=== PATIENT | female | born 1955 | race Caucasian/White ===

== ENCOUNTER 2017-04-17 08:00 | Outpatient (CLI) | payer OTHER ==
[2017-04-17 13:41] LABS: BASOPHILS # (AUTO) 0.1 10^3/uL (0.0-0.1); BASOPHILS % (AUTO) 1.3 %; EOSINOPHILS # (AUTO) 0.1 10^3/uL (0.0-0.7); EOSINOPHILS % (AUTO) 1.5 %; HGB - HEMOGLOBIN 14.5 g/dL (12.0-16.0); LYMPHOCYTES # (AUTO) 1.7 10^3/uL (1.5-3.5); LYMPHOCYTES % (AUTO) 26.6 %; MEAN CORPUSCULAR HEMOGLOBIN 29.9 pg (27.0-31.0); MEAN CORPUSCULAR HGB CONC 34.7 g/dL (32.0-36.0); MEAN CORPUSCULAR VOLUME 86.2 fL (81.0-99.0); MEAN PLATELET VOLUME 8.4 fL (7.9-10.8); MONOCYTES # (AUTO) 0.7 10^3/uL (0.0-1.0); MONOCYTES % (AUTO) 10.8 %; NEUTROPHILS # (AUTO) 3.8 10^3/uL (1.5-6.6); NEUTROPHILS % (AUTO) 59.8 %; PLT - PLATELET COUNT 214 10^3/uL (130-450); RED BLOOD COUNT 4.84 10^6/uL (4.20-5.40); RED CELL DISTRIBUTION WIDTH 12.7 % (12.0-15.0); WHITE BLOOD COUNT 6.3 x10^3/uL (4.8-10.8)
[2017-04-17 13:55] LABS: ALBUMIN 4.2 g/dL (3.2-5.5); ALBUMIN/GLOBULIN RATIO 1.2 (1.0-2.2); ALKALINE PHOSPHATASE 55 IU/L (42-121); ALT ALANINE AMINOTRANSFERASE 25 IU/L (10-60); AST ASPARTATE AMINOTRANSFERASE 19 IU/L (10-42); BILIRUBIN,TOTAL 0.6 mg/dL (0.2-1.0); BUN - BLOOD UREA NITROGEN 18 mg/dL (6-20); CALCIUM 9.1 mg/dL (8.5-10.3); CARBON DIOXIDE - CO2 25 mmol/L (21-32); CHLORIDE 104 mmol/L (101-111); CHOL/HDL RATIO 6.8 (<4.4); CHOLESTEROL 267 mg/dL; CREATININE 0.8 mg/dL (0.4-1.0); GFR - MDRD 73 (>89); GLUCOSE 104 mg/dL (70-100); HDL CHOLESTEROL 39 mg/dL; LDL CHOLESTEROL,CALCULATED 203 mg/dL; LDL/HDL RATIO 5.2 (<4.4); SODIUM 136 mmol/L (135-145); TOTAL PROTEIN 7.7 g/dL (6.7-8.2); VLDL CHOLESTEROL 25 mg/dL
== END 2017-04-17 08:01 ==
LOC: LAB.WCP 08:00
PROVIDERS: ATTEND Family Medicine
DX: Z00.00 Encounter for general adult medical examination without abnormal findings (principal); E78.9 Disorder of lipoprotein metabolism, unspecified
CPT/HCPCS: 36415; 80053; 80061; 83721; 85025

== ENCOUNTER 2018-10-09 07:20 | Day surgery (SDC) | payer OTHER ==
[2018-10-09] MEDS ORDERED: LACTATED RINGERS 1,000 ML IV ONE (07:29)
[2018-10-09] MEDS ORDERED: MIDAZOLAM 2 MG/2 ML VIAL IVP ONE (08:45)
[2018-10-09] MEDS ORDERED: fentaNYL 250 MCG/5 ML VIAL IVP ONE (08:45)
[2018-10-09 10:15] VITALS: BP 108/70
[2018-10-09] MEDS ORDERED: ONDANSETRON ODT 4 MG TABLET ONE (10:30)
== END 2018-10-09 07:21 | disposition home or self-care (01) ==
LOC: SDS 07:20
PROVIDERS: ATTEND Internal Medicine
PROC: 0DJD8ZZ Inspection of Lower Intestinal Tract, Via Natural or Artificial Opening Endoscopic (ICD-10-PCS; principal; 2018-10-09 08:30)
DX: Z12.11 Encounter for screening for malignant neoplasm of colon (principal); K57.30 Diverticulosis of large intestine without perforation or abscess without bleeding
CPT/HCPCS: 45378; J3010; J7120; Q0162

== ENCOUNTER 2018-11-19 08:00 | Outpatient (CLI) | payer OTHER ==
[2018-11-19 19:03] LABS: BASOPHILS # (AUTO) 0.1 10^3/uL (0.0-0.1); BASOPHILS % (AUTO) 0.8 %; EOSINOPHILS # (AUTO) 0.2 10^3/uL (0.0-0.7); EOSINOPHILS % (AUTO) 2.2 %; HGB - HEMOGLOBIN 13.5 g/dL (12.0-16.0); LYMPHOCYTES % (AUTO) 27.5 %; MEAN CORPUSCULAR HEMOGLOBIN 28.8 pg (27.0-31.0); MEAN CORPUSCULAR HGB CONC 32.3 g/dL (32.0-36.0); MEAN CORPUSCULAR VOLUME 89.3 fL (81.0-99.0); MEAN PLATELET VOLUME 9.6 fL (7.9-10.8); MONOCYTES # (AUTO) 0.9 10^3/uL (0.0-1.0); MONOCYTES % (AUTO) 12.2 %; NEUTROPHILS # (AUTO) 4.1 10^3/uL (1.5-6.6); NEUTROPHILS % (AUTO) 56.9 %; PLT - PLATELET COUNT 241 10^3/uL (130-450); RED BLOOD COUNT 4.68 10^6/uL (4.20-5.40); RED CELL DISTRIBUTION WIDTH 12.6 % (12.0-15.0); WHITE BLOOD COUNT 7.2 x10^3/uL (4.8-10.8)
[2018-11-19 19:04] LABS: ALBUMIN/GLOBULIN RATIO 1.2 (1.0-2.2); BILIRUBIN,TOTAL 0.8 mg/dL (0.2-1.0); CALCIUM 9.1 mg/dL (8.5-10.3); CREATININE 0.7 mg/dL (0.4-1.0); TOTAL PROTEIN 7.4 g/dL (6.7-8.2)
== END 2018-11-19 08:01 | disposition home or self-care (01) ==
LOC: LAB.WCP 08:00
PROVIDERS: ATTEND Family Medicine
DX: R10.9 Unspecified abdominal pain (principal)
CPT/HCPCS: 36415; 80053; 82150; 83690; 85025

== ENCOUNTER 2018-11-19 17:48 | Outpatient (CLI) | payer OTHER ==
[2018-11-19] MEDS ORDERED: IOVERSOL 320 50 ML VIAL ONE (18:04)
[2018-11-19] MEDS ORDERED: IOVERSOL 320 100 ML VIAL IVP ONE ×3 (18:04→19:36)
[2018-11-19] MEDS ORDERED: IOVERSOL 320 50 ML VIAL PO ONE (19:36)
--- NOTE | 2018-11-19 20:57 | CT Report ---
Reason: ABDOMINAL PAIN Procedure Date: 11/19/2018 Accession Number: [id number] / [id number] Procedure: CT - Abdomen/Pelvis W CPT Code: FULL RESULT: EXAM: CT ABDOMEN AND PELVIS EXAM DATE: 11/19/2018 07:26 PM. CLINICAL HISTORY: ABDOMINAL PAIN. COMPARISONS: None. TECHNIQUE: Routine helical CT imaging was performed through the abdomen and pelvis. IV contrast: OPTI 320 100ML. Enteric contrast: Yes. Reconstructions: Coronal and sagittal. In accordance with CT protocol optimization, one or more of the following dose reduction techniques were utilized for this exam: automated exposure control, adjustment of mA and/or KV based on patient size, or use of iterative reconstructive technique. FINDINGS: Lung Bases: Unremarkable. Liver: Fatty liver, with sparing adjacent to the gallbladder. Gallbladder/Bile Ducts: The extra hepatic bile duct is mildly dilated up to 10 mm. No obvious intrahepatic bile duct dilatation. Some high density stones are present in the gallbladder fundus. The gallbladder is otherwise normal. Abrupt termination of the common bile duct of the head of the pancreas without normal tapering, worrisome for a stone. Attenuation is near that of stones in the gallbladder. Spleen: Normal. Pancreas: Normal. Adrenal Glands: Normal. Kidneys: Normal. No masses or hydronephrosis. Peritoneal Cavity/Bowel: A moderate size duodenal diverticulum is present near the ampulla measuring up to 2.5 cm in size. Some scattered diverticulosis, no CT evidence of diverticulitis. No free air or free fluid. Oral contrast has reached the sigmoid colon. The appendix is well visualized and normal. Pelvic Organs: Patient is status post hysterectomy. Urinary bladder is unremarkable. Streak artifact from right hip arthroplasty limits fine detail. Vasculature: No aneurysms or other significant abnormality. Bones: Total right hip arthroplasty. There is moderate left hip degenerative changes, with joint space loss superiorly. Other: None. IMPRESSION: 1. Cholelithiasis and concern for choledocholithiasis. The common bile duct is dilated up to 1 cm. There may be a stone in the distal common bile duct given truncation of the bile column. Correlate with liver function tests and location of pain. A periampullary duodenal diverticulum is present. 2. Fatty liver. 3. Diverticulosis without CT evidence of diverticulitis. RADIA The call report notification system was initiated by Dr. Irving Fuentes at 08:50 PM on 11/19/2018. ADDENDUM: 11/19/18 21:13 The above call report findings were discussed with Dr. Jiménez by Dr. Irving Fuentes at 09:13 PM on 11/19/2018.
== END 2018-11-19 17:49 | disposition home or self-care (01) ==
LOC: DI 17:48
PROVIDERS: ATTEND Family Medicine
DX: R10.9 Unspecified abdominal pain (principal); K80.20 Calculus of gallbladder without cholecystitis without obstruction; K76.0 Fatty (change of) liver, not elsewhere classified; K57.90 Diverticulosis of intestine, part unspecified, without perforation or abscess without bleeding
CPT/HCPCS: 36415; 74177; 80053; 82150; 83690; 85025; Q9967

== ENCOUNTER 2018-11-25 00:52 | Day surgery (SDC) | payer OTHER ==
[2018-11-25 01:07] LABS: BASOPHILS # (AUTO) 0.1 10^3/uL (0.0-0.1); BASOPHILS % (AUTO) 0.8 %; EOSINOPHILS # (AUTO) 0.2 10^3/uL (0.0-0.7); EOSINOPHILS % (AUTO) 2.1 %; HGB - HEMOGLOBIN 14.5 g/dL (12.0-16.0); LYMPHOCYTES # (AUTO) 1.9 10^3/uL (1.5-3.5); LYMPHOCYTES % (AUTO) 20.2 %; MEAN CORPUSCULAR HEMOGLOBIN 29.4 pg (27.0-31.0); MEAN CORPUSCULAR HGB CONC 33.3 g/dL (32.0-36.0); MEAN CORPUSCULAR VOLUME 88.2 fL (81.0-99.0); MEAN PLATELET VOLUME 9.1 fL (7.9-10.8); MONOCYTES # (AUTO) 1.1 10^3/uL (0.0-1.0); MONOCYTES % (AUTO) 11.2 %; NEUTROPHILS # (AUTO) 6.1 10^3/uL (1.5-6.6); NEUTROPHILS % (AUTO) 65.2 %; PLT - PLATELET COUNT 304 10^3/uL (130-450); RED BLOOD COUNT 4.93 10^6/uL (4.20-5.40); RED CELL DISTRIBUTION WIDTH 11.8 % (12.0-15.0); WHITE BLOOD COUNT 9.4 x10^3/uL (4.8-10.8)
[2018-11-25 01:20] LABS: ALBUMIN 4.2 g/dL (3.2-5.5); CALCIUM 9.7 mg/dL (8.5-10.3); CREATININE 1.2 mg/dL (0.4-1.0); TOTAL PROTEIN 8.5 g/dL (6.7-8.2)
--- NOTE | 2018-11-25 01:34 | ED Physician Documentation ---
PD HPI ABD PAIN - Stated complaint Stated Complaint: ABD PX - Chief complaint Chief Complaint: Abd Pain - History obtained from History obtained from: Patient - History of Present Illness Timing - onset: Enter time (23:00) Timing - details: Abrupt onset, Constant, Waxing and waning Pain level now: 8 Quality: Pain Location: RUQ Radiation: Lower back, Right flank Improved by: Other (nothing) Worsened by: Other (no exacerbating factors) Associated symptoms: No: Fever, Nausea, Vomiting, Diarrhea, Constipation Similar symptoms before: Diagnosis (biliary colic) Recently seen: Surgery - Additional information Additional information: patient has been having episodic RUQ pain for approximately 7-10 days. w/u revealed multiple gallstones and she had ERCP 11/21 at [facility], some sludge and gallstones were removed but they were unable to clear all the gallstones; stent was placed and plan was to f/u in 4-6 weeks for stent removal. Per patient, she was told she would eventually need to have the gallbladder removed. She presents at this time due to severe pain since 11 PM which woke her from sleep Review of Systems Constitutional: denies: Fever, Chills, Sweats Eyes: reports: Reviewed and negative Ears: reports: Reviewed and negative Nose: reports: Reviewed and negative Cardiac: reports: Reviewed and negative Respiratory: reports: Reviewed and negative GI: reports: Abdominal Pain. denies: Nausea, Vomiting, Constipation, Diarrhea : denies: Dysuria, Frequency Skin: reports: Reviewed and negative Musculoskeletal: reports: Back pain (RUQ pain radiates to the right flank and back (not back pain per se)) Neurologic: reports: Reviewed and negative PD PAST MEDICAL HISTORY - Past Medical History Cardiovascular: High cholesterol Respiratory: Shortness of breath Endocrine/Autoimmune: None GI: GERD, Hiatal hernia : Incontinence HEENT: Chronic sinusitis Psych: None Musculoskeletal: Osteoarthritis Derm: Herpes zoster - Past Surgical History General: Colonoscopy Ortho: Hip replacement /[employer]: Hysterectomy Derm: Skin cancer surgery - Present Medications Home Medications: Ambulatory Orders Medication Instructions Recorded Confirmed Omeprazole [Prilosec] 20 mg PO DAILY 09/04/14 10/09/18 Simvastatin 20 mg PO QPM 09/04/14 10/09/18 Albuterol 2.5 mg INH Q4H PRN 10/09/18 10/09/18 Docusate Sodium 250Mg Capsule 250 mg PO DAILY #10 capsule 11/25/18 [Colace 250Mg Capsule] oxyCODONE [Roxicodone] 5 mg PO Q4-6H #20 tablet 11/25/18 - Allergies Allergies/Adverse Reactions: Allergies Allergy/AdvReac Type Severity Reaction Status Date / Time hydrocodone bitartrate * AdvReac Intermediate Hallucinati Verified 09/04/14 08:29 [From Vicodin] ons - Living Situation Living Situation: reports: With spouse/s.o. Living Arrangement: reports: At home - Social History Does the pt drink ETOH?: No PD ED PE NORMAL - Vitals Vital signs reviewed: Yes - General General: Alert and oriented X 3, Well developed/nourished, Other (obvious severe painful distress) - HEENT HEENT: Moist mucous membranes - Neck Neck: Supple, no meningeal sign - Cardiac Cardiac: RRR, No murmur - Respiratory Respiratory: No respiratory distress, Clear bilaterally - Abdomen Abdomen: Soft, Non distended, Other (mild epigastric tenderness without rebound or guarding) - Back Back: No CVA TTP - Derm Derm: Normal color, Warm and dry - Extremities Extremities: No edema Results - Vitals Vitals: Vital Signs - 24 hr 11/25/18 11/25/18 11/25/18 11:51 13:10 13:15 Temperature 36.9 C 37.3 C Heart Rate 64 61 61 Respiratory 18 10 L 10 L Rate Blood Pressure 142/74 H 102/61 90/55 L O2 Saturation 96 100 100 11/25/18 11/25/18 11/25/18 13:20 13:25 13:30 Temperature 37.5 C 37.5 C Heart Rate 71 60 60 Respiratory 15 15 15 Rate Blood Pressure 86/54 L 92/55 L 89/57 L O2 Saturation 100 100 100 11/25/18 11/25/18 11/25/18 13:35 13:40 13:45 Temperature 37.4 C 37.4 C 37.2 C Heart Rate 61 61 75 Respiratory 15 16 15 Rate Blood Pressure 93/54 L 94/56 L 117/65 O2 Saturation 100 100 97 11/25/18 11/25/18 11/25/18 13:50 13:55 14:00 Temperature 37.2 C 37.2 C 37.2 C Heart Rate 76 65 66 Respiratory 14 15 14 Rate Blood Pressure 118/66 112/65 107/66 O2 Saturation 95 94 98 11/25/18 11/25/18 11/25/18 14:05 14:10 14:15 Temperature 37.2 C 37.2 C 36.9 C Heart Rate 89 85 72 Respiratory 14 14 14 Rate Blood Pressure 101/64 103/64 128/64 O2 Saturation 95 96 95 11/25/18 11/25/18 11/25/18 14:30 14:45 15:00 Temperature 36.6 C 36.8 C 36.8 C Heart Rate 85 71 80 Respiratory 14 15 14 Rate Blood Pressure 122/62 110/69 120/83 H O2 Saturation 98 94 95 Oxygen O2 Source [] Room air O2 Source [] Room air O2 Source Room air - Labs Labs: Laboratory Tests 11/25/18 11/25/18 01:00 01:00 WBC 9.4 RBC 4.93 Hgb 14.5 Hct 43.5 MCV 88.2 MCH 29.4 MCHC 33.3 RDW 11.8 L Plt Count 304 MPV 9.1 Neut # (Auto) 6.1 Lymph # (Auto) 1.9 Wolfe # (Auto) 1.1 H Eos # (Auto) 0.2 Baso # (Auto) 0.1 Absolute Nucleated RBC 0.00 Nucleated RBC % 0.0 Sodium 140 Potassium 3.7 Chloride 103 Carbon Dioxide 27 Anion Gap 10.0 BUN 13 Creatinine 1.2 H Estimated GFR (MDRD) 45 L Glucose 131 H Calcium 9.7 Total Bilirubin 1.0 AST 137 H ALT 146 H Alkaline Phosphatase 120 Total Protein 8.5 H Albumin 4.2 Globulin 4.3 H Albumin/Globulin Ratio 1.0 Lipase 57 H - Rads (name of study) RUQ US Radiology: Prelim report reviewed, See rad report PD MEDICAL DECISION MAKING - ED course Complexity details: reviewed old records, reviewed results, re-evaluated patient, considered differential, d/w patient ED course: Patient arrives in obvious and severe painful distress. She had transient relief with IV dilaudid but subsequently had return of severe abdominal pain then became associated with nausea and vomiting. D/W Dr. Musa, will evaluate in ED later this morning. Departure - Departure Disposition: ED Transfer to [facility] Clinical Impression: Biliary colic Condition: Stable Discharge Date/Time: 11/25/18 11:54
[2018-11-25] MEDS ORDERED: SODIUM CHLORIDE 0.9% 1,000 ML IV STA (01:41)
[2018-11-25] MEDS ORDERED: HYDROmorphone 1 MG/ML CARPUJECT IVP STA ×3 (01:41→10:08)
[2018-11-25] MEDS ORDERED: ONDANSETRON 4 MG/2 ML VIAL IVP STA ×3 (01:51→09:32)
[2018-11-25] MEDS ORDERED: ONDANSETRON 4 MG/2 ML VIAL ONE (02:03)
--- NOTE | 2018-11-25 03:42 | Ultrasound Report ---
Reason: abd. pain Procedure Date: 11/25/2018 Accession Number: [id number] / [id number] Procedure: US - Abdomen Limited CPT Code: FULL RESULT: EXAM: ABDOMEN ULTRASOUND LIMITED, RUQ EXAM DATE: 11/25/2018 03:24 AM CLINICAL HISTORY: Abdominal pain. COMPARISON: ABDOMEN/PELVIS W/ 11/19/2018 7:13 PM. TECHNIQUE: Real-time scanning was performed with static images obtained. FINDINGS: Liver: Echotexture increased without suspicious abnormality seen. Main portal vein flow: Hepatopetal. Gallbladder: Multiple gallstones without wall thickening or reported tenderness. Biliary System: CBD measures up to 11 mm. Mild extrahepatic ductal dilatation without choledocholithiasis seen within the visualized portion of the duct. Other: None. IMPRESSION: 1. Cholelithiasis without definite acute cholecystitis. 2. Dilated extrahepatic bile duct without choledocholithiasis seen in the visualized portion of the duct. Portions are obscured. If there is clinical concern for an obstructive biliary process, ERCP or MRCP should be considered. 3. Fatty liver. RADIA
--- NOTE | 2018-11-25 10:14 | CONSULTATION NOTE ---
Referring Provider Name of Referring Provider:: Dr. Rick Keene Consult Date: 11/25/18 Chief Complaint - Chief Complaint Chief Complaint: Persistent and severe right upper quadrant pain with known cholelithiasis a History of Present Illness - Admitted From Admitted From:: Outpatient - History Obtained From Records Reviewed: Yes History obtained from: Patient, chart, and Dr. Keene Exam Limitations: None - History of Present Illness HPI Comment/Other: This patient is a 63-year-old female whose had a history of symptomatic cholelithiasis which only recently worsened. On or around November 19 the pain got so severe that she spoke with Dr. Jiménez and studies were ordered. The CT scan and CMP were consistent with choledocholithiasis and the patient was sent to [place] for an ERCP. ERCP was done on November [address] Daniel Richard and consisted of a sphincterotomy, clearance of a majority of the sludge and stones, and placement of a stent since there was still one large stone that could not be removed. If I understand the note from Dr. Richard correctly, the plan was for interval cholecystectomy but before this could be scheduled the leandro saenz presented to our emergency department. Last night at 11:00, waking the patient up from sleep, she experienced severe right upper quadrant pain that was unremitting. It did have a slight waxing and waning quality to it but it never went completely away. Prior to this she had eaten some beef stew and some bread. This was associated with nausea and vomiting. She denies melena, hematochezia, or hematemesis. Recently she has lost some weight with the inability to eat without pain. When I went to see the patient in room 1 at [facility]'s emergency department it was apparent to me that I knew her as the patient I had cared for. History - Past Medical History Cardiovascular: reports: High cholesterol Respiratory: reports: Shortness of breath Endocrine/Autoimmune: reports: None GI: reports: GERD, Hiatal hernia : reports: Incontinence HEENT: reports: Chronic sinusitis Psych: reports: None Musculoskeletal: reports: Osteoarthritis Derm: reports: Herpes zoster MRSA Hx?: No - Past Surgical History General: reports: Colonoscopy Ortho: reports: Hip replacement /[employer]: reports: Hysterectomy Derm: reports: Skin cancer surgery - POLST Patient has POLST: No Meds/Allgy - Home Medications Home Medications: Ambulatory Orders Medication Instructions Recorded Confirmed Omeprazole [Prilosec] 20 mg PO DAILY 09/04/14 10/09/18 Simvastatin 20 mg PO QPM 09/04/14 10/09/18 Albuterol 2.5 mg INH Q4H PRN 10/09/18 10/09/18 - Allergies Allergies/Adverse Reactions: Allergies Allergy/AdvReac Type Severity Reaction Status Date / Time hydrocodone bitartrate * AdvReac Intermediate Hallucinati Verified 09/04/14 08:29 [From Vicodin] ons Review of Systems - Constitutional Constitutional: reports: Fatigue, Malaise, Poor appetite. denies: Fever, Chills - Eyes Eyes: denies: Pain - Ears, Nose & Throat Ears, Nose & Throat: denies: Ear pain - Cardiovascular Cariovascular: denies: Irregular heart rate, Palpitations, Chest pain - Respiratory Respiratory: denies: Cough, Sputum production - Gastrointestinal Gastrointestinal: reports: Abdominal pain, Nausea, Vomiting, Bile emesis. denies: Black stools, Bloody stools - Genitourinary Genitourinary: denies: Dysuria - Musculoskeletal Musculoskeletal: denies: Muscle pain, Back pain - Integumentary Integumentary: denies: Rash - Neurological Neurological: denies: General weakness, Focal weakness Exam - Vital Signs Reviewed Vital Signs: Yes Vital Signs: Vital Signs x48h Temp Pulse Resp BP Pulse Ox 11/25/18 09:59 80 18 132/66 H 99 11/25/18 08:44 78 18 123/67 100 11/25/18 06:59 78 17 112/63 98 11/25/18 05:14 81 20 126/74 100 11/25/18 04:57 36.9 C 70 18 117/68 100 11/25/18 04:27 83 17 120/66 100 11/25/18 03:10 81 17 138/73 H 100 - Physical Exam General Appearance: positive: Moderate distress (Patient is still in quite a bit of discomfort asking for pain medication.) Eyes Bilateral: positive: No lid inflammation, Conjunctivae nml, No scleral icterus ENT: positive: Dry mucous membranes Neck: positive: Trachea midline Respiratory: positive: Chest non-tender, No respiratory distress, Breath sounds nml Cardiovascular: positive: Regular rate & rhythm (Mildly tachycardic between 90 and 100.), No murmur Abdomen: positive: Tenderness (Exquisite in the right upper quadrant.), Abnml bowel sounds (Decreased.), Other (Small umbilical hernia without evidence of obstruction. No erythema. No ecchymosis.) Skin: positive: Color nml Extremities: positive: Nml appearance Neurologic/Psychiatric: positive: Oriented x3, Motor nml, Sensation nml, Mood/affect nml Conclusion/Plan - Diagnosis Diagnosis: Symptomatic cholelithiasis and choledocholithiasis and a 63-year-old female status post ERCP with sphincterotomy and stent placement - Plan Plan: Laparoscopic cholecystectomy, possible open cholecystectomy, possible intraoperative cholangiogran, possible common bile duct exploration, and umbilical herniorrhaphy (I will be using the umbilical hernia to access the patient's abdomen, and repair it on the way out). The indications, procedure, alternatives including no surgery, ingestion of Actigall, possible risks including infection (deep or superficial), bleeding requiring transfusion (with all of its risks), common bile duct injury requring repair and additional surgery, and were fully explained to the patient and all questions answered. I also explained the pathophysiology. Due to the pathophysiology and the cannulation of her common bile duct as well as the presence of choledocholithiasis Zosyn 3.375 g is indicated rather than the standard first generation cephalosporin. I also explained that she is at increased risk for the development of a bile leak and infection. I explained that following the surgery I did not want her lifting anything over 15 pounds for 6 weeks to allow for optimal healing and to decrease the likelihood that a hernia would occur. All questions were fully answered. Verbal and written consent was obtained. The patient, in preparation for surgery will be nothing by mouth, and receive 2 gm of Cephalexin with induction. I asked her to contact me with any surgical questions and her concerns and she stated that she would. I asked her to let me know if there is any way we can make her stay at [facility] more comfortable and she stated that she would let me know. The plan is to do this operation as an outpatient procedure and to discharge her home following the procedure. 45 minutes of [id number] time spent with the patient, the majority of which was spent in discussion, coordination of care, and completion of the requisite paperwork Dragon disclaimer: This document was created in part using voice recognition technology. Because of the inherent limitations of the system ([employer]'s [employer] user manual states that the licensee understands that speech recognition is a statistical pr ocess and that recognition errors are inherent in the process), occasional same sounding word substitutions and grammatical errors do occur and persist despite proofreading. Please read this document for context. - Lab Results Lab results reviewed: Yes Fish Bones: 11/25/18 01:00 11/25/18 01:00 - Diagnostic Imaging Results Diagnostic Imaging Results: positive: Final report reviewed
--- NOTE | 2018-11-25 10:44 | ANESTHESIA ---
Pre-Anesthesia VS, & Labs - Diagnosis Diagnosis Symptomatic cholelithiasis and choledocholithiasis and a 63-year-old female status post ERCP with sphincterotomy and stent placement - Procedure Lap. yesy with possible cholangioram Vital Signs: Temp Pulse Resp BP Pulse Ox 36.9 C 72 16 141/68 H 95 11/25/18 04:57 11/25/18 10:37 11/25/18 10:37 11/25/18 10:37 11/25/18 10:37 Height 5 ft 6 in Weight (kg) 75.296 kg Body Mass Index 26.8 - NPO >8 hours - Is Patient ?: Not Applicable - Lab Results Current Lab Results: Laboratory Tests 11/25/18 01:00: Sodium 140, Potassium 3.7, Chloride 103, Carbon Dioxide 27, Anion Gap 10.0, BUN 13, Creatinine 1.2 H, Estimated GFR (MDRD) 45 L, Glucose 131 H, Calcium 9.7, Total Bilirubin 1.0, AST 137 H, ALT 146 H, Alkaline Phosphatase 120, Total Protein 8.5 H, Albumin 4.2, Globulin 4.3 H, Albumin/Globulin Ratio 1.0, Lipase 57 H 11/25/18 01:00: WBC 9.4, RBC 4.93, Hgb 14.5, Hct 43.5, MCV 88.2, MCH 29.4, MCHC 33.3, RDW 11.8 L, Plt Count 304, MPV 9.1, Neut # (Auto) 6.1, Lymph # (Auto) 1.9, [place] # (Auto) 1.1 H, Eos # (Auto) 0.2, Baso # (Auto) 0.1, Absolute Nucleated RBC 0.00, Nucleated RBC % 0.0 Fish Bones: 11/25/18 01:00 11/25/18 01:00 Home Medications and Allergies Omeprazole [Prilosec] 20 mg PO DAILY 09/04/14 Simvastatin 20 mg PO QPM 09/04/14 Albuterol 2.5 mg INH Q4H PRN 10/09/18 Allergies/Adverse Reactions: Allergies Allergy/AdvReac Type Severity Reaction Status Date / Time hydrocodone bitartrate * AdvReac Intermediate Hallucinati Verified 09/04/14 08:29 [From Vicodin] ons Anes History & Medical History - Anesthetic History Anesthesia Complications: reports: Post-Operative Nausea/Vomiting - Medical History Cardiovascular: reports: High cholesterol Pulmonary: reports: Shortness of breath (s/p bronchitis in the spring. Last used inhalor 1 month ago) Gastrointestinal: reports: GERD (controlled with medication), Hiatal hernia Urinary: reports: Incontinence Neuro: reports: None Musculoskeletal: reports: Osteoarthritis Endocrine/Autoimmune: reports: None Blood Disorders: reports: None Skin: reports: Herpes zoster Smoking Status: Never smoker Psychosocial: reports: Alcohol (occassional) - Surgical History General: Colonoscopy, Other (ERCP) Urologic: Bladder surgery Gynecologic: Hysterectomy Orthopedic: Hip replacement Dermatologic: Skin cancer surgery Exam General: Alert, Oriented x3, Cooperative, No acute distress Dental: WNL Mouth Openin Fingerbreadth Neck Mobility: Normal Mallampati classification: II Thyromental Distance: 4-6 cm Respiratory: Lungs clear, Normal breath sounds, No respiratory distress, No accessory muscle use Cardiovascular: Regular rate, Normal S1, Normal S2, No murmurs Mental/Cognitive Status: Alert/Oriented X3, Normal for patient Plan Anesthesia Type: General Consent for Procedure(s) Verified and Reviewed: Yes Code Status: Attempt Resuscitation ASA classification: 2-Mild systemic disease Is this case an emergency?: Yes
[2018-11-25] MEDS ORDERED: BUPIVACAINE 0.5% PF 10 ML VIAL ONE (11:10)
[2018-11-25] MEDS ORDERED: LACTATED RINGERS 1,000 ML IV ONE ×2 (11:45→13:33)
[2018-11-25] MEDS ORDERED: BUPIVACAINE 0.5% PF 30 ML VIAL SUBQ ONE (12:33)
[2018-11-25] MEDS ORDERED: HYDROmorphone 0.5 MG/0.5 ML SYRINGE IVP PRN (13:02)
[2018-11-25] MEDS ORDERED: oxyCODONE 5 MG TABLET PO PRN (13:02)
[2018-11-25] MEDS ORDERED: ONDANSETRON 4 MG/2 ML VIAL IVP PRN (13:02)
--- NOTE | 2018-11-25 13:09 | OPERATIVE REPORT ---
Operative Report - General Procedure Date: 11/25/18 Planned Procedure: Laparoscopic cholecystectomy, possible open cholecystectomy, possible common bile duct expiration, possible intraoperative cholangiogram, umbilical herniorrhaphy Pre-Op Diagnosis: Symptomatic cholelithiasis and choledocholithiasis Procedure Performed: Laparoscopic cholecystectomy and umbilical herniorrhaphy Post Op Diagnosis: Same - Procedure Note Primary Surgeon: Jose Musa MD Anesthesia Provider: Keenan Balderas CRNA and Tao Yuo CRNA Anesthesia Technique: General ET tube, Local (30 mL of half percent Marcaine) IV Fluids (mL): 900 Estimated Blood Loss (mL): 5 Drain/Tube Type: Other (None.) Complications: None. - Other Other Information/Narrative: OPERATIVE DESCRIPTION/REPORT: After verbal and written informed consent was obtained detailing the risks of infection, bleeding requiring transfusion with its risks, common bile duct injury, and , and after I met with the patient confirming the surgery, the patient was brought to the operative suite and placed supine on the operating table. Great care was taken to avoid pressure points to prevent pressure necrosis or nerve injury. Monitoring devices were applied along with TEDs and pneumatic compressive stockings (to prevent DVT). The patient received preoperative antibiotics for surgical prophylaxis. Keenan Balderas CRNA followed by Tao You CRNA sedated and anethetized the patient for the entire procedure. The patient was prepped and draped in the usual sterile manner. A "time in" then confirmed that the patient was identified with 3 identifiers (name, date and medical record number), the history and physical was in the chart, the signed consent confirming the procedure was in the chart, the patient was in the correct position, the aforementioned prophylactic measures were in place or given, we had the correct personnel and equipment to complete the procedure and that anesthesia, surgery and nursing were given an opportunity to express any concerns. With the agreement of everyone in the room, we proceeded with the operation. The initial incision was at the umbilicus and dissection to a small umbilical hernia was completed using blunt dissection. The hernia sac was excised using Bovie electrocautery as was the preperitoneal fat. The fascia on either side was cleared for at least a centimeter in each direction using Bovie electrocautery. In this location, a 12 mm blunt tipped, balloon tipped port was placed and the balloon was inflated to keep the port in position. The abdominal cavity was insufflated with carbon dioxide to steady-state pressure of 15 mmHg. Three additional 5 mm ports were placed in standard location for laparoscopic cholecystectomy (subxiphoid and 2 right subcostal) under direct vision of the 30 degree laparoscope and without incident. The patient was then placed in reverse Trendelenburg position and was rotated slightly to their left. The gallbladder was markedly distended and could not be grasped and as such had to be drained. A laparoscopic needle was placed into the gallbladder and 55 mL of brown-green bile was removed. The gallbladder fundus could then be grasped with an atraumatic grasper. Multiple adhesions had to be taken down by blunt and sharp dissection along with electrocautery. Eventually, we identified the infundibulum, and this was then grasped and retracted inferior and laterally. Dissection was then begun in the angle of Calot. The cystic duct and (slightly medially and posteriorly) cystic artery were clearly identified. The critical view was obtained. Three clips (due to the planned ERCP and the biliary stent in place) proximally and one clip distally were used to control both the cystic duct and cystic artery. The clips were carefully placed to avoid occluding the juncture with the common bile duct. Both the cystic duct and then the cystic artery were then transected with laparoscopic amber. The gallbladder was then removed from its fossa in a retrograde fashion using electrocautery. With the 30 degree 5 mm scope in the subxiphoid position, the gallbladder was placed in an EndoCatch bag to be extracted through the 12 mm port site. I irrigated the right upper quadrant with a liter of warm sterile saline, and the area was aspirated dry. I inspected the gallbladder fossa and there was no bleeding or bile leak. Clips on the cystic duct and cystic artery appeared to be secure. I briefly visually explored the abdomen. There was no other evidence of overt pathology. I injected the port sites at the peritoneal, fascial, and skin levels under direct vision with 0.5% Marcaine. All ports and the EndoCatch containing the gallbladder were removed. Following gallbladder removal, the remaining carbon dioxide was expelled from the abdomen. The fascia at the umbilicus was reapproximated using 2 [id number]-[id number] 0 Vicryl sutures thus repairing the umbilical hernia. The skin at each port site was approximated using a subcuticular 4-0 Monocryl. The surgical count of instruments, needles and sponges was reported as correct twice. Mastisol, Steri-Strips and sterile surgical dressings were applied. The patient was then awakened from anesthesia, extubated, and having tolerated the procedure well, was transported to the recovery room. No complications were encountered. A "time out" confirmed the operation performed, the fluids given, the estimated blood loss and anesthesia, surgery and nursing were given an opportunity to express any concerns. inContact disclaimer: This document was created in part using voice recognition technology. Because of the inherent limitations of the system ([employer]'s [employer] user manual states that the licensee understands that speech recognition is a statistical process and that recognition errors are inherent in the process), occasional same sounding word substitutions and grammatical errors do occur and persist despite proofreading. Please read this document for context.
[2018-11-25] MEDS ORDERED: KETOROLAC 15 MG/ML VIAL ONE (14:01)
[2018-11-25 15:01] VITALS: BP 120/83
== END 2018-11-25 09:01 | disposition home or self-care (01) ==
LOC: ED 00:52 → SDS 09:00
PROVIDERS: ATTEND Surgery
PROC: 0FT44ZZ Resection of Gallbladder, Percutaneous Endoscopic Approach (ICD-10-PCS; principal; 2018-11-25 11:15)
DX: K80.66 Calculus of gallbladder and bile duct with acute and chronic cholecystitis without obstruction (principal); K42.9 Umbilical hernia without obstruction or gangrene; E78.00 Pure hypercholesterolemia, unspecified; K21.9 Gastro-esophageal reflux disease without esophagitis; K44.9 Diaphragmatic hernia without obstruction or gangrene; R32 Unspecified urinary incontinence; J32.9 Chronic sinusitis, unspecified; M19.90 Unspecified osteoarthritis, unspecified site; R06.02 Shortness of breath; Z96.89 Presence of other specified functional implants; Z79.51 Long term (current) use of inhaled steroids; Z96.649 Presence of unspecified artificial hip joint; Z85.828 Personal history of other malignant neoplasm of skin; Z86.19 Personal history of other infectious and parasitic diseases; Z90.710 Acquired absence of both cervix and uterus
CPT/HCPCS: 36415; 47562; 76705; 80053; 83690; 85025; 96374; 96375; 96376; 99285; J1170; J7120

== ENCOUNTER 2018-12-27 22:33 | Emergency (ER) | payer OTHER ==
--- NOTE | 2018-12-27 23:09 | ED Physician Documentation ---
PD HPI ABD PAIN - Stated complaint Stated Complaint: ABD PX/POST SURGERY - Chief complaint Chief Complaint: Abd Pain - History obtained from History obtained from: Patient, Family - History of Present Illness Timing - onset: Today (about 5-6 pm, onset nausea and upper abd pain soon after dischargeFrom outpatient gastroenterology procedure with ERCP done to remove a common bile duct stent that had been placed a month ago. She had not had any abdominal pain prior to the procedure. The ERCP was done with removal of the stent and finding a residual stone in the duct that was removed successfully acc ording to the procedure note the patient brought with her. She was taking p.o. fluids at the time of discharge postop but developed nausea vomiting and upper abdominal pain on route back home and this is continued through the evening.) Timing - duration: Hours (4-5) Timing - details: Abrupt onset, Still present Quality: Aching, Sharp, Pain Location: RUQ, Epigastric Radiation: No: Chest, Lower back, Right flank Improved by: Other (no improvement with attempted fluids). No: Laying still Worsened by: Eating (has only had sips of fluids since procedure), Moving, Palpation. No: Breathing Associated symptoms: Nausea, Vomiting. No: Fever, Hematemesis, Diarrhea, Chest pain, Dizzy Similar symptoms before: Diagnosis (She had had similar though not quite as severe abdominal pain episodes 1 to 1-1/2 months ago was seen by her primary care with CT scan done showing gallstones without acute cholecystitis but also a common bile duct blockage with some ductal dilatation. She was referred to [facility] and [facility] and had an ERCP with sphincter myotomy and common bile duct stone removal November 19 and then subsequently had a another pain episode on November 25 that was felt from her gallbladder. She had gallbladder surgery done here by Dr. Levin November 25 and was doing well postoperatively with normal healing and fairly normal diet with occasional upper abdominal pains. This is felt likely due to the stent and some ductal pressure. She did not have elevations of her amylase or lipase or significant of her bilirubin. She had planned ERCP earlier today in order to have stent removal and intraprocedure dye study showed there is still to be residual stone that was removed. She states the pain today is similar to when she had the gallbladder flareup.) Recently seen: Surgery (this afternoon in [place] by Dr. Richard, ERCP and stent removeal and residual CBD stone removed.) Review of Systems Constitutional: denies: Fever, Chills Cardiac: denies: Chest pain / pressure, Palpitations Respiratory: denies: Dyspnea, Cough GI: reports: Abdominal Pain, Nausea, Vomiting. denies: Abdominal Swelling, Diarrhea, Hematemesis : denies: Dysuria, Frequency PD PAST MEDICAL HISTORY - Past Medical History Cardiovascular: High cholesterol Respiratory: Shortness of breath Neuro: None Endocrine/Autoimmune: None GI: GERD, Hiatal hernia : Incontinence HEENT: Chronic sinusitis Psych: None Musculoskeletal: Osteoarthritis Derm: Herpes zoster - Past Surgical History Past Surgical History: Yes General: Colonoscopy Ortho: Hip replacement /[employer]: Hysterectomy Derm: Skin cancer surgery - Present Medications Home Medications: Ambulatory Orders Medication Instructions Recorded Confirmed Omeprazole [Prilosec] 20 mg PO DAILY 09/04/14 10/09/18 Simvastatin 20 mg PO QPM 09/04/14 10/09/18 Albuterol 2.5 mg INH Q4H PRN 10/09/18 10/09/18 Docusate Sodium 250Mg Capsule 250 mg PO DAILY #10 capsule 11/25/18 [Colace 250Mg Capsule] oxyCODONE [Roxicodone] 5 mg PO Q4-6H #20 tablet 11/25/18 - Allergies Allergies/Adverse Reactions: Allergies Allergy/AdvReac Type Severity Reaction Status Date / Time hydrocodone bitartrate * AdvReac Intermediate Hallucinati Verified 09/04/14 08:29 [From Vicodin] ons - Social History Does the pt smoke?: No Smoking Status: Never smoker Does the pt drink ETOH?: No Does the pt have substance abuse?: No - Immunizations Immunizations are current?: Yes - POLST Patient has POLST: No PD ED PE NORMAL - Vitals Vital signs reviewed: Yes - General General: Alert and oriented X 3, Well developed/nourished, Other (appears in pain, holding upper abd. ) - HEENT HEENT: Pharynx benign - Neck Neck: Supple, no meningeal sign, No adenopathy - Cardiac Cardiac: RRR, No murmur - Respiratory Respiratory: Clear bilaterally - Abdomen Abdomen: Soft, Non distended, No organomegaly, Other (tender epigstric and RUQ area with local guarding; no percussion nor referred tenderness. ) - Back Back: No CVA TTP - Derm Derm: Normal color, Warm and dry, Other (abd prior sugrical sites for CCY are well healing without signs of infection nor local tenderness. ) - Extremities Extremities: Normal ROM s pain - Neuro Neuro: Alert and oriented X 3, No motor deficit, Normal speech Results - Vitals Vitals: Vital Signs - 24 hr 12/27/18 12/27/18 12/28/18 22:46 23:03 00:06 Temperature 36.8 C Heart Rate 84 82 67 Respiratory 17 17 17 Rate Blood Pressure 157/83 H 146/76 H 151/76 H O2 Saturation 98 96 100 12/28/18 12/28/18 12/28/18 00:39 01:05 01:33 Temperature Heart Rate 78 71 70 Respiratory 17 15 15 Rate Blood Pressure 140/70 H 118/70 130/71 O2 Saturation 94 93 97 12/28/18 12/28/18 02:07 02:33 Temperature Heart Rate 70 72 Respiratory 17 15 Rate Blood Pressure 130/77 116/69 O2 Saturation 97 92 Oxygen O2 Source [With Activity] Room air O2 Source [Without Activity] Room air O2 Source Room air - Labs Labs: Laboratory Tests 12/27/18 12/27/18 22:58 22:58 WBC 11.9 H RBC 4.96 Hgb 14.7 Hct 43.2 MCV 87.1 MCH 29.6 MCHC 34.0 RDW 12.0 Plt Count 182 MPV 9.8 Neut # (Auto) 10.3 H Lymph # (Auto) 0.8 L Pima # (Auto) 0.7 Eos # (Auto) 0.0 Baso # (Auto) 0.1 Absolute Nucleated RBC 0.00 Nucleated RBC % 0.0 Sodium 137 Potassium 4.0 Chloride 101 Carbon Dioxide 23 Anion Gap 13.0 BUN 13 Creatinine 0.7 Estimated GFR (MDRD) 85 L Glucose 163 H Calcium 9.3 Magnesium 2.2 Total Bilirubin 2.0 H AST 520 H ALT 414 H Alkaline Phosphatase 114 Total Protein 7.7 Albumin 4.4 Globulin 3.3 Albumin/Globulin Ratio 1.3 Amylase 44 Lipase 35 PD MEDICAL DECISION MAKING - ED course Complexity details: reviewed results, re-evaluated patient (Her pain is improved with IV antiemetics and pain medications along with some fluids. She is gill tender in the upper abdomen. Awaiting CT and CT results.), considered differential, d/w patient, d/w marketing database consultant (I talked with Dr. Barnes who is on for GI who then consulted Dr. Gong who is on for surgery. Dr. Gong called back and accepted transfer of the patient to [facility]. The patient remained stable here in the ER and is safe for transfer.) Departure - Departure Disposition: 02 Transfer Acute Care Hosp Clinical Impression: Status post endoscopic retrograde cholangiopancreatography, Duodenal pe rforation, Postoperative upper abdominal pain Condition: Stable Record reviewed to determine appropriate education?: Yes
[2018-12-27] MEDS ORDERED: ONDANSETRON 4 MG/2 ML VIAL IVP STA (23:27)
[2018-12-27] MEDS ORDERED: HYDROmorphone 1 MG/ML CARPUJECT IVP STA (23:27)
[2018-12-27] MEDS ORDERED: SODIUM CHLORIDE 0.9% 1,000 ML IV ONE (23:27)
[2018-12-27] MEDS ORDERED: KETOROLAC 15 MG/ML VIAL IVP STA (23:30)
[2018-12-27 23:37] LABS: BASOPHILS # (AUTO) 0.1 10^3/uL (0.0-0.1); BASOPHILS % (AUTO) 0.4 %; HGB - HEMOGLOBIN 14.7 g/dL (12.0-16.0); LYMPHOCYTES # (AUTO) 0.8 10^3/uL (1.5-3.5); LYMPHOCYTES % (AUTO) 6.7 %; MEAN CORPUSCULAR HEMOGLOBIN 29.6 pg (27.0-31.0); MEAN CORPUSCULAR VOLUME 87.1 fL (81.0-99.0); MEAN PLATELET VOLUME 9.8 fL (7.9-10.8); MONOCYTES # (AUTO) 0.7 10^3/uL (0.0-1.0); NEUTROPHILS # (AUTO) 10.3 10^3/uL (1.5-6.6); NEUTROPHILS % (AUTO) 86.5 %; PLT - PLATELET COUNT 182 10^3/uL (130-450); RED BLOOD COUNT 4.96 10^6/uL (4.20-5.40); WHITE BLOOD COUNT 11.9 x10^3/uL (4.8-10.8)
[2018-12-27 23:52] LABS: ALBUMIN 4.4 g/dL (3.2-5.5); ALBUMIN/GLOBULIN RATIO 1.3 (1.0-2.2); CALCIUM 9.3 mg/dL (8.5-10.3); CREATININE 0.7 mg/dL (0.4-1.0); MAGNESIUM 2.2 mg/dL (1.7-2.8); TOTAL PROTEIN 7.7 g/dL (6.7-8.2)
[2018-12-27] MEDS ORDERED: IOVERSOL 320 100 ML VIAL IVP ONE (23:58)
[2018-12-28] MEDS ORDERED: IOVERSOL 320 100 ML VIAL IVP ONE (00:34)
[2018-12-28] MEDS ORDERED: PIPERACILLIN/TAZOBACTAM 3.375 GM in SODIUM CHLORIDE 0.9% MINIBAG 100 ML IV STA (00:56)
--- NOTE | 2018-12-28 01:02 | CT Report ---
Reason: post CBD stent removal; pain upper abd Procedure Date: 12/28/2018 Accession Number: [id number] / [id number] Procedure: CT - Abdomen/Pelvis W CPT Code: Final Report FULL RESULT: EXAM: CT ABDOMEN AND PELVIS EXAM DATE: 12/28/2018 12:20 AM. CLINICAL HISTORY: Post CBD stent removal; pain upper abd. COMPARISONS: ABDOMEN/PELVIS W/ 11/19/2018 7:13 PM. TECHNIQUE: Routine helical CT imaging was performed through the abdomen and pelvis. IV contrast: OPTI 320 100ML. Enteric contrast: No. Reconstructions: Coronal and sagittal. In accordance with CT protocol optimization, one or more of the following dose reduction techniques were utilized for this exam: automated exposure control, adjustment of mA and/or KV based on patient size, or use of iterative reconstructive technique. FINDINGS: ABDOMEN: Lung Bases: Incompletely included lower lungs are grossly clear. Heart size is within normal limits. No basilar effusions. Liver: Diffuse steatosis. Spleen: Unremarkable. Pancreas: Unremarkable. Gallbladder/Bile Ducts: Status post cholecystectomy. Pneumobilia is present. Adrenal Glands: Unremarkable. Kidneys: No mass, calculi, or hydronephrosis. Peritoneum/Mesentery/Bowel: Free air in the upper abdomen predominantly periduodenal and periportal. No intestinal obstruction. Periampullary duodenal diverticulum is collapsed with surrounding gas. The appendix is within normal limits. Lymph nodes: No mesenteric, periportal, or retroperitoneal lymphadenopathy. Vasculature: Abdominal aorta is nonaneurysmal. Portal vein is patent. Hepatic veins are patent. PELVIS: The bladder is unremarkable for the degree of distention. Uterus is absent. No pelvic lymphadenopathy. Bones: No suspicious osseous lesions. IMPRESSION: Duodenal perforation status post CBD stent removal, with the point of perforation likely at the periampullary duodenal diverticulum at the medial aspect of the second duodenum. RADIA
[2018-12-28] MEDS ORDERED: SODIUM CHLORIDE 0.9% 1,000 ML IV ONE (01:17)
[2018-12-28] MEDS ORDERED: AMIODARONE 150 MG/100 ML 100 ML IV ONE (01:20)
[2018-12-28 03:36] VITALS: BP 123/71
[2018-12-28] MEDS ORDERED: ONDANSETRON 4 MG/2 ML VIAL IVP STA (04:10)
[2018-12-28] MEDS ORDERED: HYDROmorphone 1 MG/ML CARPUJECT IVP STA (04:10)
[2018-12-28] MEDS ORDERED: FAMOTIDINE 20 MG/2 ML VIAL IVP STA (04:11)
== END 2018-12-28 04:39 | disposition short-term general hospital (02) ==
LOC: ED 22:33
DX: K91.71 Accidental puncture and laceration of a digestive system organ or structure during a digestive system procedure (principal); Y65.8 Other specified misadventures during surgical and medical care; G89.18 Other acute postprocedural pain; R10.11 Right upper quadrant pain
CPT/HCPCS: 36415; 74177; 80053; 82150; 83690; 83735; 85025; 96361; 96365; 96375; 96376; 99284; J0282; J1170; Q9967

== ENCOUNTER 2018-12-28 04:41 | Outpatient (CLI) | payer OTHER | END 2018-12-28 04:42 | disposition short-term general hospital (02) | LOC: EMS 04:41 | PROVIDERS: ATTEND Surgery | DX: R10.9 Unspecified abdominal pain (principal) | CPT/HCPCS: A0425; A0426 ==

== ENCOUNTER 2019-03-10 09:44 | Outpatient (CLI) | payer OTHER ==
--- NOTE | 2019-03-10 13:38 | Mammography Report ---
Reason: SCREENING MAMMO Procedure Date: 03/10/2019 Accession Number: [id number] / [id number] Procedure: [facility] - Screening Mammo Dig Bilat CPT Code: Final Report FULL RESULT: EXAM: Screening Mammo Dig Bilat DATE: 03/10/2019 10:09 AM CLINICAL HISTORY: Routine screening TECHNIQUE: (B) - Bilateral CC and MLO views were obtained. COMPARISON: 12/30/2015, 10/03/2012, 06/30/2011, 03/19/2010 PARENCHYMAL PATTERN: (D) - The breasts demonstrate heterogeneously dense fibroglandular parenchyma bilaterally. FINDINGS: Bilateral nodular densities are again appreciated, with variation in size and number compared to prior studies. While these are most likely cysts, no prior ultrasound has been performed to confirm that. The 2 dominant nodules on the right are in the middle third 6:00 position with other scattered smaller nodules both medial and laterally on the CC projection, difficult to precisely locate on the lateral projection. On the left nodules are seen in the medial breast. Increasing vascular calcification right breast. No other interval change or significant finding. IMPRESSION: 0: Needs additional evaluation bilateral breasts. RECOMMENDATION: (ADDUS) - Targeted ultrasound recommended. Suggest whole right breast ultrasound and medial left breast ultrasound to exclude the presence of a solid mass.. BI-RADS CATEGORY: (0) - Incomplete Examination - need additional evaluation. STANDARD QUALIFYING STATEMENTS: 1. This examination was not reviewed with the aid of Computer-Aided Detection (CAD). 2. A negative or benign imaging report should not preclude biopsy if clinically suspicious findings are present. 3. Dense breasts may obscure an underlying neoplasm. 4. This examination was reviewed without the aid of 3D breast imaging (tomosynthesis).
== END 2019-03-10 09:45 | disposition home or self-care (01) ==
LOC: DI 09:44
DX: Z12.31 Encounter for screening mammogram for malignant neoplasm of breast (principal); R92.8 Other abnormal and inconclusive findings on diagnostic imaging of breast
CPT/HCPCS: 77067

== ENCOUNTER 2019-03-21 09:45 | Outpatient (CLI) | payer OTHER ==
[2019-03-21 12:48] LABS: BASOPHILS # (AUTO) 0.1 10^3/uL (0.0-0.1); BASOPHILS % (AUTO) 1.1 %; EOSINOPHILS # (AUTO) 0.1 10^3/uL (0.0-0.7); EOSINOPHILS % (AUTO) 1.6 %; HGB - HEMOGLOBIN 14.2 g/dL (12.0-16.0); LYMPHOCYTES # (AUTO) 1.9 10^3/uL (1.5-3.5); LYMPHOCYTES % (AUTO) 26.9 %; MEAN CORPUSCULAR HEMOGLOBIN 28.7 pg (27.0-31.0); MEAN CORPUSCULAR HGB CONC 32.3 g/dL (32.0-36.0); MEAN CORPUSCULAR VOLUME 88.7 fL (81.0-99.0); MEAN PLATELET VOLUME 10.1 fL (7.9-10.8); MONOCYTES # (AUTO) 0.8 10^3/uL (0.0-1.0); MONOCYTES % (AUTO) 10.9 %; NEUTROPHILS # (AUTO) 4.1 10^3/uL (1.5-6.6); NEUTROPHILS % (AUTO) 59.1 %; PLT - PLATELET COUNT 230 10^3/uL (130-450); RED BLOOD COUNT 4.95 10^6/uL (4.20-5.40); RED CELL DISTRIBUTION WIDTH 12.1 % (12.0-15.0)
[2019-03-21 13:09] LABS: ALBUMIN 4.1 g/dL (3.2-5.5); ALBUMIN/GLOBULIN RATIO 1.2 (1.0-2.2); ALKALINE PHOSPHATASE 63 IU/L (42-121); ALT ALANINE AMINOTRANSFERASE 30 IU/L (10-60); AST ASPARTATE AMINOTRANSFERASE 20 IU/L (10-42); BILIRUBIN,TOTAL 0.5 mg/dL (0.2-1.0); BUN - BLOOD UREA NITROGEN 16 mg/dL (6-20); CALCIUM 9.1 mg/dL (8.5-10.3); CARBON DIOXIDE - CO2 26 mmol/L (21-32); CHLORIDE 104 mmol/L (101-111); CHOL/HDL RATIO 4.3 (<4.4); CHOLESTEROL 190 mg/dL; CREATININE 0.8 mg/dL (0.4-1.0); GFR - MDRD 72 (>89); GLUCOSE 91 mg/dL (70-100); HDL CHOLESTEROL 44 mg/dL; LDL CHOLESTEROL,CALCULATED 110 mg/dL; LDL/HDL RATIO 2.5 (<4.4); SODIUM 139 mmol/L (135-145); TOTAL PROTEIN 7.6 g/dL (6.7-8.2); VLDL CHOLESTEROL 36 mg/dL
== END 2019-03-21 23:59 | disposition home or self-care (01) ==
LOC: LAB.WCP 09:45
PROVIDERS: ATTEND Family Medicine
DX: E78.00 Pure hypercholesterolemia, unspecified (principal); K83.9 Disease of biliary tract, unspecified; K31.9 Disease of stomach and duodenum, unspecified
CPT/HCPCS: 36415; 80053; 80061; 83721; 84443; 85025

== ENCOUNTER 2019-04-09 14:18 | Outpatient (CLI) | payer OTHER ==
--- NOTE | 2019-04-09 16:42 | Ultrasound Report ---
Reason: ABN MAMMO - BI LAT SPECIAL VIEWS US Procedure Date: 04/09/2019 Accession Number: [id number] / [id number] Procedure: US - Breast Unilateral Limited CPT Code: Final Report FULL RESULT: EXAM: Breast Unilateral Limited DATE: 04/09/2019 3:00 PM CLINICAL HISTORY: ABN MAMMO - BI LAT SPECIAL VIEWS US COMPARISON: 03/10/2019. TECHNIQUE: Targeted ultrasound was performed of the right breast in the area of clinical concern at 6 o'clock and 4 and 5 cm distance from the nipple. Color Doppler was employed as appropriate. FINDINGS: At 6:00 4 cm from the nipple is a wider than tall cyst with increased through transmission and debris. There is no solid component and borders are well demarcated measuring 1.5 x 1.5 x 0.9 cm, typically benign appearance. This correlates to mammographic findings. At the 6:00 position 5 cm from the nipple is a partially cystic partially solid mass with well demarcated borders which measures 0.7 x 0.6 x 0.7 cm and appears to contain a dependent solid component, probably benign. This correlates to mammographic findings. IMPRESSION: Probable benign findings RECOMMENDATION: Recommend diagnostic ultrasound of the right breast in 6 months. BIRADS CATEGORY 3 RADIA
--- NOTE | 2019-04-09 16:45 | Ultrasound Report ---
Reason: ABN MAMMO - BI LAT SPECIAL VIEWS US Procedure Date: 04/09/2019 Accession Number: [id number] / [id number] Procedure: US - Breast Unilateral Limited CPT Code: Final Report FULL RESULT: EXAM: Breast Unilateral Limited DATE: 04/09/2019 3:34 PM CLINICAL HISTORY: ABN MAMMO - BI LAT SPECIAL VIEWS US COMPARISON: None. TECHNIQUE: Targeted ultrasound was performed of the left breast in the area of clinical concern at 6 o'clock and 5 to 6 cm distance from the nipple. Color Doppler was employed as appropriate. FINDINGS: At the 6:00 position 5 and 6 cm from the nipple are simple cyst with increased through transmission, well defined imperceptibly thin dsouza which are wider than tall and measure 0.8 x 0.2 x 0.4 cm and 0.7 x 0.7 x 0.6 cm respectively, typically benign. At the 5:00 axis 6 cm from the nipple a morphologically preserved typically benign appearing lymph node which measures 0.6 x 0.3 0.5 cm is also noted. These findings correlate to mammographic appearance. IMPRESSION: Benign findings RECOMMENDATION: Recommend routine annual Screening mammography unless otherwise clinically indicated. BIRADS CATEGORY 2: Benign findings RADIA
== END 2019-04-09 14:19 | disposition home or self-care (01) ==
LOC: DI 14:18
PROVIDERS: ATTEND Family Medicine
DX: R92.8 Other abnormal and inconclusive findings on diagnostic imaging of breast (principal)
CPT/HCPCS: 76642

== ENCOUNTER 2019-06-20 15:05 | Outpatient (CLI) | payer OTHER ==
[2019-06-20 17:51] LABS: BASOPHILS # (AUTO) 0.1 10^3/uL (0.0-0.1); BASOPHILS % (AUTO) 0.9 %; EOSINOPHILS # (AUTO) 0.1 10^3/uL (0.0-0.7); EOSINOPHILS % (AUTO) 1.4 %; HGB - HEMOGLOBIN 14.1 g/dL (12.0-16.0); LYMPHOCYTES % (AUTO) 20.8 %; MEAN CORPUSCULAR HEMOGLOBIN 30.1 pg (27.0-31.0); MEAN CORPUSCULAR HGB CONC 33.5 g/dL (32.0-36.0); MONOCYTES % (AUTO) 10.6 %; NEUTROPHILS # (AUTO) 6.5 10^3/uL (1.5-6.6); NEUTROPHILS % (AUTO) 65.9 %; PLT - PLATELET COUNT 232 10^3/uL (130-450); RED BLOOD COUNT 4.68 10^6/uL (4.20-5.40); RED CELL DISTRIBUTION WIDTH 12.1 % (12.0-15.0); WHITE BLOOD COUNT 9.8 x10^3/uL (4.8-10.8)
[2019-06-20 18:15] LABS: ALBUMIN 4.5 g/dL (3.2-5.5); ALBUMIN/GLOBULIN RATIO 1.4 (1.0-2.2); BILIRUBIN,TOTAL 0.4 mg/dL (0.2-1.0); CALCIUM 9.5 mg/dL (8.5-10.3); CREATININE 0.8 mg/dL (0.4-1.0); TOTAL PROTEIN 7.7 g/dL (6.7-8.2)
[2019-06-20 18:27] LABS: FERRITIN 135.9 ng/mL (11.0-306.8)
== END 2019-06-20 23:59 | disposition home or self-care (01) ==
LOC: LAB.WCP 15:05
PROVIDERS: ATTEND Family Medicine
DX: L65.9 Nonscarring hair loss, unspecified (principal); R42 Dizziness and giddiness
CPT/HCPCS: 36415; 80053; 82728; 83540; 84443; 84466; 85025

== ENCOUNTER 2019-08-28 08:00 | Outpatient (CLI) | payer OTHER ==
[2019-08-28 18:39] LABS: BASOPHILS # (AUTO) 0.1 10^3/uL (0.0-0.1); BASOPHILS % (AUTO) 0.5 %; EOSINOPHILS # (AUTO) 0.1 10^3/uL (0.0-0.7); EOSINOPHILS % (AUTO) 0.6 %; HGB - HEMOGLOBIN 14.2 g/dL (12.0-16.0); LYMPHOCYTES # (AUTO) 1.8 10^3/uL (1.5-3.5); LYMPHOCYTES % (AUTO) 15.1 %; MEAN CORPUSCULAR HEMOGLOBIN 29.6 pg (27.0-31.0); MEAN CORPUSCULAR HGB CONC 32.9 g/dL (32.0-36.0); MEAN PLATELET VOLUME 10.1 fL (7.9-10.8); MONOCYTES # (AUTO) 1.6 10^3/uL (0.0-1.0); MONOCYTES % (AUTO) 13.1 %; NEUTROPHILS # (AUTO) 8.4 10^3/uL (1.5-6.6); NEUTROPHILS % (AUTO) 70.3 %; PLT - PLATELET COUNT 217 10^3/uL (130-450); RED BLOOD COUNT 4.79 10^6/uL (4.20-5.40); RED CELL DISTRIBUTION WIDTH 11.9 % (12.0-15.0)
[2019-08-28 18:48] LABS: ALBUMIN 4.7 g/dL (3.2-5.5); ALBUMIN/GLOBULIN RATIO 1.6 (1.0-2.2); CALCIUM 9.4 mg/dL (8.5-10.3); CREATININE 0.8 mg/dL (0.4-1.0); TOTAL PROTEIN 7.6 g/dL (6.7-8.2)
[2019-08-28 19:21] LABS: DIFFERENTIAL COMMENT MANUAL=AUTO DIFF; PLATELET ESTIMATE, MANUAL NORMAL (130-450,000) (NORMAL); PLATELET MORPHOLOGY NORMAL APPEARANCE (NORMAL); RBC MORPHOLOGY (MULTIPLE) NORMAL APPEARANCE (NORMAL)
== END 2019-08-28 23:59 | disposition home or self-care (01) ==
LOC: LAB.WCP 08:00
PROVIDERS: ATTEND Family Medicine
DX: R19.7 Diarrhea, unspecified (principal); R10.9 Unspecified abdominal pain
CPT/HCPCS: 36415; 80053; 82150; 83690; 85025

== ENCOUNTER 2019-12-17 13:24 | Outpatient (CLI) | payer OTHER ==
--- NOTE | 2019-12-23 14:49 | Ultrasound Report ---
LIMITED ULTRASOUND OF RIGHT BREAST: 12/17/2019 CLINICAL: Patient returns today to evaluate cysts in the right breast. Comparison is made to exams dated: 04/09/2019 ultrasound, 03/10/2019 mammogram, and 12/30/2015 mammogr [facility]. Color flow and real-time ultrasound of the right breast 6 o'clock region were performed. Valadez scale images of the real-time examination were reviewed. There is a stable 0.7 cm x 0.6 cm x 0.7 cm round cyst with debris in the right breast at 6 o'clock mi ddle depth 4 cm from the nipple. This round cyst with debris displays a well-defined boundary and po sterior acoustic enhancement. Color flow imaging demonstrates that there is no vascularity present. There also is a benign 1.8 cm x 1.1 cm x 1.4 cm wider than tall oval cyst in the right breast at 6 o' clock middle depth 3 cm from the nipple. This oval cyst displays a well-defined boundary and posteri or acoustic enhancement. This abnormality is not significantly changed. Color flow imaging demonstr ates that there is no vascularity present. IMPRESSION: PROBABLY BENIGN The stable 0.7 cm x 0.6 cm x 0.7 cm round cyst with debris in the right breast at 6 o'clock middle de pth is consistent with a complicated cyst and is probably benign. A follow-up ultrasound in 6 months is recommended. The 1.8 cm x 1.1 cm x 1.4 cm wider than tall oval cyst in the right breast at 6 o'clock middle depth is benign. A follow-up right ultrasound in 6 months is recommended to demonstrate stability. Future imaging is recommended as follows: 03/10/2020 screening mammogram. This exam was interpreted at Station ID: [id number]. Electronically Signed By: Lula kenny/:12/23/2019 14:19:54 Ultrasound BI-RADS: 3 Probably benign BI-RADS CATEGORY: (3) - 3 Ultrasound [id number] 6 month follow-up LATERALITY: (R)
== END 2019-12-17 13:25 | disposition home or self-care (01) ==
LOC: DI 13:24
PROVIDERS: ATTEND Family Medicine
DX: R92.8 Other abnormal and inconclusive findings on diagnostic imaging of breast (principal); N60.01 Solitary cyst of right breast
CPT/HCPCS: 76642

== ENCOUNTER 2020-02-18 09:21 | Outpatient (CLI) | payer OTHER ==
[2020-02-18 12:23] LABS: BASOPHILS # (AUTO) 0.1 10^3/uL (0.0-0.1); BASOPHILS % (AUTO) 1.1 %; EOSINOPHILS # (AUTO) 0.1 10^3/uL (0.0-0.7); EOSINOPHILS % (AUTO) 1.5 %; HGB - HEMOGLOBIN 14.9 g/dL (12.0-16.0); LYMPHOCYTES # (AUTO) 1.9 10^3/uL (1.5-3.5); LYMPHOCYTES % (AUTO) 25.8 %; MEAN CORPUSCULAR HEMOGLOBIN 29.1 pg (27.0-31.0); MEAN CORPUSCULAR HGB CONC 32.4 g/dL (32.0-36.0); MEAN CORPUSCULAR VOLUME 89.8 fL (81.0-99.0); MEAN PLATELET VOLUME 9.8 fL (7.9-10.8); MONOCYTES # (AUTO) 0.8 10^3/uL (0.0-1.0); MONOCYTES % (AUTO) 10.4 %; NEUTROPHILS # (AUTO) 4.3 10^3/uL (1.5-6.6); NEUTROPHILS % (AUTO) 59.8 %; PLT - PLATELET COUNT 237 10^3/uL (130-450); RED BLOOD COUNT 5.12 10^6/uL (4.20-5.40); RED CELL DISTRIBUTION WIDTH 11.8 % (12.0-15.0); WHITE BLOOD COUNT 7.2 x10^3/uL (4.8-10.8)
[2020-02-18 12:42] LABS: ALBUMIN 4.6 g/dL (3.2-5.5); ALBUMIN/GLOBULIN RATIO 1.4 (1.0-2.2); BILIRUBIN,TOTAL 0.5 mg/dL (0.2-1.0); CALCIUM 9.5 mg/dL (8.5-10.3); CREATININE 0.7 mg/dL (0.4-1.0)
== END 2020-02-18 23:59 | disposition home or self-care (01) ==
LOC: LAB.WCP 09:21
PROVIDERS: ATTEND Internal Medicine
DX: Z00.00 Encounter for general adult medical examination without abnormal findings (principal)
CPT/HCPCS: 36415; 80053; 85025

== ENCOUNTER 2020-08-20 09:22 | Outpatient (CLI) | payer OTHER, MEDICARE ==
[2020-08-20 09:55] LABS: CHOL/HDL RATIO 4.7 (<4.4); CHOLESTEROL 208 mg/dL; HDL CHOLESTEROL 44 mg/dL; LDL CHOLESTEROL,CALCULATED 129 mg/dL; LDL/HDL RATIO 2.9 (<4.4); TRIGLYCERIDES 173 mg/dL; VLDL CHOLESTEROL 35 mg/dL
== END 2020-08-20 09:23 | disposition home or self-care (01) ==
LOC: LAB 09:22
PROVIDERS: ATTEND Internal Medicine
DX: E78.00 Pure hypercholesterolemia, unspecified (principal)
CPT/HCPCS: 36415; 80061; 83721

== ENCOUNTER 2020-10-14 08:45 | Outpatient (CLI) | payer MEDICARE, OTHER ==
--- NOTE | 2020-10-15 13:39 | Mammography Report ---
BILATERAL DIGITAL SCREENING MAMMOGRAM 3D/2D: 10/14/2020 CLINICAL: Routine screening. Comparison is made to exams dated: 12/17/2019 ultrasound, 04/09/2019 ultrasound, 03/10/2019 mammogram, 12/30/2015 mammogram, 10/03/2012 mammogram, and 06/30/2011 mammogram - [facility]. The tissue of both breasts is heterogeneously dense. This may lower the sensitivity of mammography. There are cysts in the right breast. No significant masses, calcifications, or other findings are seen in either breast. There has been no significant interval change. IMPRESSION: BENIGN There is no mammographic evidence of malignancy. A 1 year screening mammogram is recommended. This exam was interpreted at Station ID: [id number]. NOTE: For mammograms, a report in lay terms will be sent to the patient. Approximately 15% of breast malignancies will not be visualized mammographically. In the management of a palpable breast mass, a negative mammogram must not discourage biopsy of a clinically suspicious lesion. Electronically Signed By: Killian Ramirez M.D. aty/:10/14/2020 10:25:43 ACR BI-RADS Category 2: Benign Finding(s) 3342F PARENCHYMAL PATTERN: (D) - The breast(s) demonstrate(s) heterogeneously dense fibroglandular [place]. BI-RADS CATEGORY: (2) - 2 RECOMMENDATION: (ANNUAL) - Recommend routine annual screening mammography. [id number] 1 year screening LATERALITY: (B)
== END 2020-10-14 08:46 | disposition home or self-care (01) ==
LOC: DI 08:45
PROVIDERS: ATTEND Internal Medicine
DX: Z12.31 Encounter for screening mammogram for malignant neoplasm of breast (principal)

== ENCOUNTER 2020-10-14 08:47 | Outpatient (CLI) | payer MEDICARE, OTHER ==
--- NOTE | 2020-10-15 13:39 | Ultrasound Report ---
LIMITED ULTRASOUND OF RIGHT BREAST: 10/14/2020 CLINICAL: 6 month follow-up of cysts. No prior exams were available for comparison. Color flow ultrasound of the right breast 6 o'clock region was performed. Valadez scale images of the r eal-time examination were reviewed. There is a benign 1.1 cm x 1.2 cm x 1.8 cm wider than tall oval cyst in the right breast at 6 o'clock middle depth 3 cm from the nipple. This oval cyst is anechoic with a well-defined boundary and post erior acoustic enhancement. This abnormality is not significantly changed and correlates with mammog era findings. Color flow imaging demonstrates that there is no vascularity present. There also is a benign 0.7 cm x 0.5 cm x 0.6 cm round cyst in the right breast at 6 o'clock middle de pth 4 cm from the nipple. This round cyst is anechoic with a well-defined boundary and posterior aco ustic enhancement. This abnormality is not significantly changed and correlates with mammography fin dings. Color flow imaging demonstrates that there is no vascularity present. IMPRESSION: BENIGN There is no sonographic evidence of malignancy. The 1.1 cm x 1.2 cm x 1.8 cm wider than tall oval simple cyst in the right breast at 6 o'clock middle depth is benign. The 0.7 cm x 0.5 cm x 0.6 cm round simple cyst in the right breast at 6 o'clock middle depth is benig n. A 1 year screening mammogram is recommended. Findings and recommendations were conveyed to the patient during today's evaluation. This exam was interpreted at Station ID: [id number]. Electronically Signed By: Killian Ramirez M.D. aty/:10/14/2020 10:28:26 Ultrasound BI-RADS: 2 Benign BI-RADS CATEGORY: (2) - 2 RECOMMENDATION: (ANNUAL) - Recommend routine annual screening mammography. [id number] 1 year screening LATERALITY: (B)
== END 2020-10-14 08:48 | disposition home or self-care (01) ==
LOC: DI 08:47
PROVIDERS: ATTEND Internal Medicine
DX: N60.11 Diffuse cystic mastopathy of right breast (principal)

== ENCOUNTER 2021-09-06 09:35 | Outpatient (CLI) | payer MEDICARE, OTHER ==
[2021-09-06 10:07] LABS: BASOPHILS # (AUTO) 0.1 10^3/uL (0.0-0.1); BASOPHILS % (AUTO) 0.7 %; EOSINOPHILS # (AUTO) 0.1 10^3/uL (0.0-0.7); EOSINOPHILS % (AUTO) 1.3 %; HCT - HEMATOCRIT 41.8 % (37.0-47.0); HGB - HEMOGLOBIN 14.5 g/dL (12.0-16.0); LYMPHOCYTES # (AUTO) 1.7 10^3/uL (1.5-3.5); LYMPHOCYTES % (AUTO) 23.2 %; MEAN CORPUSCULAR HEMOGLOBIN 30.6 pg (27.0-31.0); MEAN CORPUSCULAR HGB CONC 34.7 g/dL (32.0-36.0); MEAN CORPUSCULAR VOLUME 88.2 fL (81.0-99.0); MEAN PLATELET VOLUME 9.3 fL (7.9-10.8); MONOCYTES # (AUTO) 0.7 10^3/uL (0.0-1.0); MONOCYTES % (AUTO) 10.1 %; NEUTROPHILS # (AUTO) 4.6 10^3/uL (1.5-6.6); NEUTROPHILS % (AUTO) 64.4 %; PLT - PLATELET COUNT 202 10^3/uL (130-450); RED BLOOD COUNT 4.74 10^6/uL (4.20-5.40); RED CELL DISTRIBUTION WIDTH 11.8 % (12.0-15.0); WHITE BLOOD COUNT 7.1 x10^3/uL (4.8-10.8)
[2021-09-06 10:21] LABS: ALBUMIN 4.4 g/dL (3.2-5.5); ALBUMIN/GLOBULIN RATIO 1.6 (1.0-2.2); ALKALINE PHOSPHATASE 63 IU/L (42-121); ALT ALANINE AMINOTRANSFERASE 25 IU/L (10-60); AST ASPARTATE AMINOTRANSFERASE 15 IU/L (10-42); BILIRUBIN,TOTAL 0.6 mg/dL (0.2-1.0); BUN - BLOOD UREA NITROGEN 14 mg/dL (6-20); CALCIUM 9.6 mg/dL (8.5-10.3); CARBON DIOXIDE - CO2 27 mmol/L (21-32); CHLORIDE 105 mmol/L (101-111); CHOL/HDL RATIO 4.8 (<4.4); CHOLESTEROL 198 mg/dL; CREATININE 0.8 mg/dL (0.4-1.0); GFR - MDRD 72 (>89); GLUCOSE 93 mg/dL (70-100); HDL CHOLESTEROL 41 mg/dL; LDL CHOLESTEROL,CALCULATED 121 mg/dL; POTASSIUM 4.1 mmol/L (3.5-5.0); SODIUM 140 mmol/L (135-145); TOTAL PROTEIN 7.2 g/dL (6.7-8.2); TRIGLYCERIDES 182 mg/dL; VLDL CHOLESTEROL 36 mg/dL
[2021-09-06 14:02] LABS: ESTIMATED AVERAGE GLUCOSE 105 mg/dL (70-100); HEMOGLOBIN A1c% 5.3 % (4.27-6.07)
== END 2021-09-06 09:36 | disposition home or self-care (01) ==
LOC: LAB 09:35
PROVIDERS: ATTEND Family Medicine
DX: E78.5 Hyperlipidemia, unspecified (principal); R73.01 Impaired fasting glucose; Z79.899 Other long term (current) drug therapy
CPT/HCPCS: 36415; 80053; 80061; 83036; 83721; 85025

== ENCOUNTER 2021-11-29 15:04 | Outpatient (CLI) | payer MEDICARE, OTHER ==
--- NOTE | 2021-11-30 09:08 | Mammography Report ---
BILATERAL DIGITAL SCREENING MAMMOGRAM 3D/2D: 11/29/2021 CLINICAL: Routine screening. Comparison is made to exams dated: 10/14/2020 mammogram, 03/10/2019 mammogram, 12/30/2015 mammogram, mammogram, and 06/30/2011 mammogram - [facility]. Both breasts are heterogeneously dense, which may obscure small masses (category c / 51-75% glandula r tissue). There are benign cysts in both breasts. No significant masses, calcifications, or other findings are seen in either breast. There has been no significant interval change. IMPRESSION: BENIGN There is no mammographic evidence of malignancy. A 1 year screening mammogram is recommended. Based on the Tyrer Cuzick model (a risk assessment model) the patients lifetime risk is 5.7% and her 10 year risk is 2.9%. According to the ACR, ACS, and NCCN guidelines, an annual breast MRI exam alcon g with mammogram is recommended if the patients lifetime risk is 20% or greater. This exam was interpreted at Station ID: [id number]. NOTE: For mammograms, a report in lay terms will be sent to the patient. Approximately 15% of breast malignancies will not be visualized mammographically. In the management of a palpable breast mass, a negative mammogram must not discourage biopsy of a clinically suspicious lesion. Electronically Signed By: Killian mead/som:11/30/2021 07:28:50 ACR BI-RADS Category 2: Benign Finding(s) 3342F PARENCHYMAL PATTERN: (D) - The breast(s) demonstrate(s) heterogeneously dense fibroglandular partrany aysha. BI-RADS CATEGORY: (2) - 2 RECOMMENDATION: (ANNUAL) - Recommend routine annual screening mammography. [id number] 1 year screening LATERALITY: (B)
== END 2021-11-29 15:05 | disposition home or self-care (01) ==
LOC: DI 15:04
PROVIDERS: ATTEND Family Medicine
DX: Z12.31 Encounter for screening mammogram for malignant neoplasm of breast (principal)

== ENCOUNTER 2022-10-27 10:30 | Outpatient (CLI) | payer MEDICARE, OTHER ==
--- NOTE | 2022-10-27 12:18 | XRAY Report ---
PROCEDURE: Hip w/Pelvis 2-3V LT INDICATIONS: HIP JOINT PAIN,LEFT TECHNIQUE: AP pelvis with lateral view(s) of the left hip(s). COMPARISON: None. FINDINGS: Bones: No fractures or dislocations. No suspicious bony lesions. Total right hip arthroplasty in pl [address]. Severe left hip joint space narrowing and subchondral sclerosis. Femoral head maintains a approp riate to contour. Marginal osteophytes present. Soft tissues: No suspicious soft tissue calcifications or masses. IMPRESSION: Severe left hip osteoarthritis. Total right hip arthroplasty in place Reviewed by: Sam Berry MD on 10/27/2022 11:17 AM JOSSIE Approved by: Sam Berry MD on 10/27/2022 11:17 AM JOSSIE Station ID: [id number]
== END 2022-10-27 10:31 | disposition home or self-care (01) ==
LOC: DI 10:30
PROVIDERS: ATTEND Family Medicine
DX: M16.12 Unilateral primary osteoarthritis, left hip (principal); Z96.641 Presence of right artificial hip joint

== ENCOUNTER 2022-12-11 10:38 | Outpatient (CLI) | payer MEDICARE, OTHER ==
--- NOTE | 2022-12-12 10:12 | Mammography Report ---
BILATERAL DIGITAL SCREENING MAMMOGRAM 3D/2D: 12/11/2022 CLINICAL: Routine screening. Comparison is made to exams dated: 11/29/2021 mammogram, 10/14/2020 mammogram, 03/10/2019 mammogram, a nd 12/30/2015 mammogram - [facility]. Both breasts are heterogeneously dense, which may obscure small masses (category c / 51-75% glandular tissue). There are multiple round and oval masses with circumscribed margins seen in both breasts. No significant masses, calcifications, or other findings are seen in either breast. IMPRESSION: BENIGN There are multiple, bilateral, round and oval benign appearing masses. There is no mammographic evidence of malignancy. A 1 year screening mammogram is recommended. Based on the Tyrer Cuzick model (a risk assessment model) the patients lifetime risk is 5.5% and her 10 year risk is 2.9%. According to the ACR, ACS, and NCCN guidelines, an annual breast MRI exam alcon g with mammogram is recommended if the patients lifetime risk is 20% or greater. This exam was interpreted at Station ID: [id number]. NOTE: For mammograms, a report in lay terms will be sent to the patient. Approximately 15% of breast malignancies will not be visualized mammographically. In the management of a palpable breast mass, a negative mammogram must not discourage biopsy of a clinically suspicious lesion. Electronically Signed By: Glenda Cain M.D., PH.D eb/:12/11/2022 20:13:23 letter sent: No_Letter ACR BI-RADS Category 2: Benign Finding(s) 3342F PARENCHYMAL PATTERN: (D) - The breast(s) demonstrate(s) heterogeneously dense fibroglandular [place]. BI-RADS CATEGORY: (2) - 2 Mammogram [id number] 1 year screening LATERALITY: (B)
== END 2022-12-11 10:39 | disposition home or self-care (01) ==
LOC: DI 10:38
DX: Z12.31 Encounter for screening mammogram for malignant neoplasm of breast (principal); R92.333 Mammographic heterogeneous density, bilateral breasts; N63.20 Unspecified lump in the left breast, unspecified quadrant; N63.10 Unspecified lump in the right breast, unspecified quadrant

== ENCOUNTER 2022-12-11 11:00 | Outpatient (CLI) | payer MEDICARE, OTHER ==
--- NOTE | 2022-12-11 12:05 | DEXA Report ---
PROCEDURE: Dexa Spine and/or Hip INDICATIONS: POSTMENOPAUSAL TECHNIQUE: Dual energy x-ray absorptiometry (DXA) was performed on a [employer] System. Regions measur ed are the AP Spine, femoral neck, and if needed forearm. COMPARISON: None FINDINGS: Lumbar Spine: Bone Mineral Density 1.141 g/cm/cm,T score -0.3. Normal Left Femoral Neck: Bone Mineral Density 0.814 g/cm/cm, T score -1.6. Left Hip: Bone Mineral Density 0.803 g/cm/cm,T score -1.6. Osteopenia (T score greater or equal to -1.0: NORMAL) (T score from -1.1 to -2.4: OSTEOPENIA) (T score less than or equal to -2.5 to: OSTEOPOROSIS) Impression: By WHO criteria, this patient has low bone density (osteopenia). Normal bone mineral density of the lumbar spine. Osteopenia of the hip. Patients with diagnosis of osteoporosis or osteopenia should have regular bone mineral density assess ment. For those eligible for Medicare, routine testing is allowed once every 2 years. Testing frequ ency can be increased for patients who have rapidly progressing disease or for those who are receivin g medical therapy to restore bone mass. Reviewed by: Pj Goins on 12/11/2022 12:03 PM PDT Approved by: Pj Goins on 12/11/2022 12:03 PM PDT Station ID: [id number]
== END 2022-12-11 23:59 | disposition home or self-care (01) ==
LOC: DI 11:00
PROVIDERS: ATTEND Family Medicine
DX: Z78.0 Asymptomatic menopausal state (principal); M85.88 Other specified disorders of bone density and structure, other site

== ENCOUNTER 2023-03-13 14:09 | Outpatient (CLI) | payer MEDICARE, OTHER ==
[2023-03-13 14:29] LABS: BILIRUBIN,URINE NEGATIVE (NEGATIVE); GLUCOSE, URINE (UA) NEGATIVE (NEGATIVE); KETONES,URINE (UA) NEGATIVE (NEGATIVE); LEUKOCYTE ESTERASE, URINE MODERATE (NEGATIVE); NITRITE,URINE NEGATIVE (NEGATIVE); OCCULT BLOOD,URINE MODERATE (NEGATIVE); PH,URINE 5.5 PH (5.0-7.5); PROTEIN,URINE NEGATIVE (NEGATIVE); UROBILINOGEN,URINE 0.2 (NORMAL) E.U./dL (NORMAL)
[2023-03-13 14:46] LABS: BACTERIA,URINE Few /HPF (None Seen); CLARITY,URINE HAZY (CLEAR); RBC,URINE 0-5 /HPF (0-5); SQUAMOUS EPITHELIAL CELL,UR MOD Squamous (<= Few)
== END 2023-03-13 14:10 | disposition home or self-care (01) ==
LOC: LAB 14:09
PROVIDERS: ATTEND Family Medicine
DX: N81.89 Other female genital prolapse (principal); N93.9 Abnormal uterine and vaginal bleeding, unspecified
CPT/HCPCS: 81001; 87086

== ENCOUNTER 2023-03-29 08:00 | Outpatient (CLI) | payer MEDICARE, OTHER | END 2023-03-29 23:59 | disposition home or self-care (01) | LOC: LAB.N 08:00 | PROVIDERS: ATTEND Urology | DX: R39.9 Unspecified symptoms and signs involving the genitourinary system (principal) | CPT/HCPCS: 87086 ==

== ENCOUNTER 2023-09-12 07:38 | Outpatient (CLI) | payer MEDICARE, OTHER ==
[2023-09-12 07:56] LABS: BASOPHILS # (AUTO) 0.1 10^3/uL (0.0-0.1); BASOPHILS % (AUTO) 0.8 %; EOSINOPHILS # (AUTO) 0.2 10^3/uL (0.0-0.7); EOSINOPHILS % (AUTO) 2.7 %; HCT - HEMATOCRIT 41.2 % (37.0-47.0); HGB - HEMOGLOBIN 13.7 g/dL (12.0-16.0); LYMPHOCYTES # (AUTO) 1.6 10^3/uL (1.5-3.5); LYMPHOCYTES % (AUTO) 21.9 %; MEAN CORPUSCULAR HEMOGLOBIN 29.5 pg (27.0-31.0); MEAN CORPUSCULAR HGB CONC 33.3 g/dL (32.0-36.0); MEAN CORPUSCULAR VOLUME 88.6 fL (81.0-99.0); MEAN PLATELET VOLUME 9.2 fL (7.9-10.8); MONOCYTES # (AUTO) 0.9 10^3/uL (0.0-1.0); MONOCYTES % (AUTO) 11.9 %; NEUTROPHILS # (AUTO) 4.6 10^3/uL (1.5-6.6); NEUTROPHILS % (AUTO) 62.4 %; PLT - PLATELET COUNT 190 10^3/uL (130-450); RED BLOOD COUNT 4.65 10^6/uL (4.20-5.40); RED CELL DISTRIBUTION WIDTH 11.9 % (12.0-15.0); WHITE BLOOD COUNT 7.3 x10^3/uL (4.8-10.8)
[2023-09-12 08:05] LABS: ALBUMIN 4.4 g/dL (3.2-5.5); ALBUMIN/GLOBULIN RATIO 1.6 (1.0-2.2); ALKALINE PHOSPHATASE 67 IU/L (42-121); ALT ALANINE AMINOTRANSFERASE 24 IU/L (10-60); AST ASPARTATE AMINOTRANSFERASE 14 IU/L (10-42); BILIRUBIN,TOTAL 0.5 mg/dL (0.2-1.0); BUN - BLOOD UREA NITROGEN 16 mg/dL (6-20); CALCIUM 9.8 mg/dL (8.5-10.3); CARBON DIOXIDE - CO2 28 mmol/L (21-32); CHLORIDE 107 mmol/L (101-111); CHOL/HDL RATIO 4.3 (<4.4); CHOLESTEROL 182 mg/dL; CREATININE 0.8 mg/dL (0.6-1.3); GFR - MDRD 71 (>89); GLUCOSE 105 mg/dL (74-104); HDL CHOLESTEROL 42 mg/dL; LDL CHOLESTEROL,CALCULATED 103 mg/dL; LDL/HDL RATIO 2.5 (<4.4); POTASSIUM 4.4 mmol/L (3.5-4.5); SODIUM 139 mmol/L (135-145); TOTAL PROTEIN 7.2 g/dL (6.4-8.9); TRIGLYCERIDES 187 mg/dL; VLDL CHOLESTEROL 37 mg/dL
[2023-09-12 08:21] LABS: THYROID STIMULATING HORMONE 3.79 uIU/mL (0.34-5.60)
== END 2023-09-12 07:39 | disposition home or self-care (01) ==
LOC: LAB 07:38
PROVIDERS: ATTEND Family Medicine
DX: E78.00 Pure hypercholesterolemia, unspecified (principal); M25.552 Pain in left hip; Z78.0 Asymptomatic menopausal state; K21.9 Gastro-esophageal reflux disease without esophagitis
CPT/HCPCS: 36415; 80053; 80061; 83721; 84443; 85025